=== PATIENT | male | born 1955 | race Caucasian/White ===

== ENCOUNTER 2018-10-05 14:23 | Emergency (ER) | payer OTHER ==
[~2018-10-05] VITALS: Ht 162.6 cm; Wt 70.0 kg
[~2018-10-05 14:23] MED LIST: ACET1TAB40 PO; ASPI-1046 PO; CARV3.12 PO; CEPH-443 PO; ENAL2.5T PO; GLIM1TAB PO; METF100010 PO; SITA25TA3 PO
[2018-10-05 14:25] VITALS: Ht 162.6 cm; Wt 70.0 kg
--- NOTE | 2018-10-05 16:36 | ERD ---
ER Documentation Chief Complaint Chief Complaint mid sternal chest pain with nausea x2days pain 05/05 HPI 63-year-old male with history of diabetes, hypertension, hyperlipidemia, chronic nicotine abuse and coronary artery disease status post PCI with stent placement in 2007 presents the ED complaining of a 2-day history of unprovoked episodes of moderate to severe, midsternal, nonradiating chest pain with nausea but no vomiting, shortness of breath or diaphoresis. These episodes last several minutes and resolve spontaneously but have been increasing in frequency. Currently asymptomatic. Denies abdominal pain or back pain. No leg pain or swelling. Denies orthopnea, PND or exertional dyspnea. No URI symptoms, cough or hemoptysis. No URI symptoms, rhinorrhea or odynophagia. No fevers or chills. ROS All systems reviewed and are negative except as per history of present illness. Medications Home Meds Active Scripts Nitroglycerin* (Nitroglycerin* SL) 0.4 Mg Tab.subl, 0.4 MG SL Q5MIN PRN for CHEST PAIN, #1 BOTTLE Prov:KATHY AIKEN MD 10/05/18 Reported Medications Insulin Glargine,Hum.rec.anlog (Basaglar Kwikpen U-100) 100 Unit/1 Ml Insuln.pen, 20 UNIT SC BID, EA 10/05/18 Losartan Potassium* (Losartan Potassium*) 100 Mg Tablet, 100 MG PO DAILY, TAB 10/05/18 Metoprolol Succinate* (Toprol XL*) 25 Mg Tab.sr.24h, 25 MG PO DAILY, #30 TAB 10/05/18 Atorvastatin* (Atorvastatin*) 80 Mg Tablet, 80 MG PO QHS, #30 TAB 10/05/18 Gemfibrozil* (Gemfibrozil*) 600 Mg Tablet, 600 MG PO BID, TAB 10/05/18 Multivit/Ca Carb/B Cmplx/Fa* (Shania-Faisal*) 1 Tab Tab, 1 TAB PO DAILY, TAB 10/05/18 Clopidogrel Bisulfate* (Clopidogrel Bisulfate*) 75 Mg Tablet, 75 MG PO DAILY, #30 TAB 10/05/18 Sitagliptin Phos-Metformin Hcl (Janumet XR) 100-1,000 Mg Tbmp.24hr, 1 TAB PO WITH DINNER, #30 TAB 7/13/19 Discontinued Reported Medications Enalapril Maleate* (Enalapril Maleate*) 2.5 Mg Tablet, PO DAILY, TAB 05/16/14 Carvedilol* (Coreg*) 3.125 Mg Tablet, PO BID, TAB 05/16/14 Aspirin* (Aspirin* (EC)) 81 Mg Tablet.dr, 81 MG PO DAILY, TAB 05/16/14 Glimepiride* (Amaryl*) 1 Mg Tablet, PO DAILY, TAB 05/16/14 Metformin Hcl* (Metformin Hcl*) 1,000 Mg Tablet, 1000 MG PO DAILY, TAB 05/16/14 Sitagliptin* (Januvia*) 25 Mg Tablet, PO DAILY, TAB 05/16/14 Discontinued Scripts Acetaminophen-Codeine* (Acetaminophen-Cod #3*) 300-30 Mg Tab, 1 TAB PO Q4H PRN for PAIN, #14 TAB Prov:LENNY POWELL PA-C 03/15/15 Cephalexin* (Keflex*) 500 Mg Capsule, 500 MG PO QID for 7 Days, CAP Prov:LENNY POWELL PA-C 03/15/15 Allergies Allergies: Coded Allergies: No Known Allergy (Unverified , 10/05/18) PMhx/Soc Reviewed in chart. As per HPI. History of Surgery: Yes (STENT ) Anesthesia Reaction: No Hx Neurological Disorder: No Hx Respiratory Disorders: No Hx Cardiac Disorders: Yes (AL , HTN , HIGH CHOLESTEROL ) Hx Psychiatric Problems: No Hx Miscellaneous Medical Probl: Yes (DM) Hx Alcohol Use: No Hx Substance Use: No Hx Tobacco Use: Yes Smoking Status: Current every day smoker FmHx No sudden cardiac or cancer Physical Exam Vitals Vital Signs Date Temp Pulse Resp B/P (MAP) Pulse Ox O2 O2 Flow FiO2 Time Delivery Rate 10/05/18 82 16 131/82 98 Room Air 19:21 (98) 10/05/18 Nasal 2 16:00 Cannula 10/05/18 101 18 135/92 96 Room Air 15:52 (106) 10/05/18 98.1 68 18 142/77 97 14:25 (98) Physical Exam Const: Alert, no acute distress. Head: Atraumatic Eyes: Pupils equal reactive light, extraocular movements are intact. Normal Conjunctiva ENT: Normal External Ears, Nose and Mouth. Neck: Full range of motion. No JVD. Resp: Breath sounds are equal and clear to auscultation bilaterally Cardio: Regular rate and rhythm, no murmurs Chest Wall: No tenderness. Abd: Soft, obese, non tender, non distended. No rebound or guarding. No masses or abnormal pulsations. Normal bowel sounds Skin: No petechiae or rashes Back: No midline or flank tenderness Ext: No cyanosis, or edema. No calf swelling or tenderness. Neur: Awake and alert. No facial droop. Cranial nerves II through XII are grossly intact. Motor and sensory equal bilaterally. No focal deficit. Psych: Normal Mood and Affect. Patient does not appear anxious or depressed. Result Diagram: 10/05/18 1553 10/05/18 1553 Results 24 hrs Laboratory Tests Test 10/05/18 15:53 White Blood Count 12.6 10^3/ul Red Blood Count 4.77 10^6/ul Hemoglobin 14.2 g/dl Hematocrit 40.8 % Mean Corpuscular Volume 85.5 fl Mean Corpuscular Hemoglobin 29.8 pg Mean Corpuscular Hemoglobin Concent 34.8 g/dl Red Cell Distribution Width 13.4 % Platelet Count 307 10^3/UL Mean Platelet Volume 10.5 fl Immature Granulocytes % 1.300 % Neutrophils % 53.5 % Lymphocytes % 35.9 % Monocytes % 6.1 % Eosinophils % 2.4 % Basophils % 0.8 % Nucleated Red Blood Cells % 0.0 /100WBC Immature Granulocytes # 0.160 10^3/ul Neutrophils # 6.8 10^3/ul Lymphocytes # 4.5 10^3/ul Monocytes # 0.8 10^3/ul Eosinophils # 0.3 10^3/ul Basophils # 0.1 10^3/ul Nucleated Red Blood Cells # 0.0 10^3/ul Sodium Level 141 mmol/L Potassium Level 4.4 mmol/L Chloride Level 108 mmol/L Carbon Dioxide Level 22 mmol/L Anion Gap 11 Blood Urea Nitrogen 18 mg/dl Creatinine 1.03 mg/dl Est Glomerular Filtrat Rate mL/min > 60 mL/min Glucose Level 205 mg/dl Calcium Level 9.7 mg/dl Troponin I 0.071 ng/ml Current Medications Medications Dose Sig/Deniz Start Time Status Last (Trade) Ordered Route PRN Stop Time Admin Dose Reason Admin Nicotine 1 patch ONCE ONCE 10/05/18 DC (Nicoderm 21 TRANSDERM 18:30 Mg/ 24hr) 10/05/18 18:31 Procedures/MDM DOCUMENTS REVIEWED: ED nurse, other visits. EKG: Time: 14:27. Sinus tachycardia. Ventricular rate 104. Q's and T wave inversions in leads II, III and aVF. T wave inversions in V5 and V6. No acute ST segment elevations. No ectopy. My Interpretation IMAGING: Chest AP portable. Cardiac silhouette is normal. The costophrenic a ngles are clear. No effusions or infiltrates. No abnormalities of the bony thorax. My interpretation. 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 CBC remarkable for mild leukocytosis but no anemia or thrombocytopenia. Chemistry to evaluate for electrolyte abnormalities, hyperglycemia and renal insufficiency is significant for mild hyperglycemia but no acidosis. Troponin is 0.17. EKG is negative for acute ischemic changes or dysrhythmia. Chest x-ray reveals no evidence of congestive heart failure or pneumonia. Patient with new onset episodes of chest pain consistent with acute coronary syndrome and unstable angina. Considered CT pulmonary angiogram but presentation not consistent with pulmonary embolism or aortic dissection. HEART score: 4. Poorly controlled hypertension. Admission recommended but patient is refusing. The patient has made the decision to leave this Emergency Department and any ongoing care against the advice of the emergency physician. The patient has been informed of and verbalized understanding of the inherent risks of this decision, including sudden and permanent disability. The patient explained to me the reason for wanting to sign out against medical advice which was he currently feels fine and cannot stay in the hospital without being able to smoke cigarettes. He has already been given a nicotine patch. The patient has the capacity to make this decision and accepts the responsibility of leaving at this time. The patient and all necessary parties have been advised that the patient may return at any time for further evaluation or treatment. The patient's condition at time of discharge is serious. Smoking Cessation Therapy: Pt. was lectured for greater than 3 minutes on the health risks of continued smoking and the benefits of cessation. Though the patient's latest blood pressure was elevated (>120/80), the patient has a known history of hypertension and urged to pursue adjustment of their medical therapy as soon as possible with his primary care physician. Please refer to the medication reconciliation form for the current list of hypertensive medications. Counseled patient and family regarding diagnostic workup, diagnosis and need for followup. Understands he is welcome and indeed encourage to return to ED if he changes his mind regarding admission, symptoms recur, worsen or any other concer ns. Departure Diagnosis: Primary Impression: Acute coronary syndrome without high troponin Additional Impressions: Chest pain due to CAD Accelerated hypertension Left against medical advice Nicotine addiction Nicotine product type: cigarettes Substance use status: uncomplicated Qualified Codes: F17.210 - Nicotine dependence, cigarettes, uncomplicated Condition: Serious KATHY AIKEN MD Oct 05, 2018 16:36
[2018-10-05] MEDS ORDERED: SITA1TBM7 PO (17:54)
[2018-10-05] MEDS ORDERED: CLOP75TA19 PO (17:55)
[2018-10-05] MEDS ORDERED: NEPH PO (17:55)
[2018-10-05] MEDS ORDERED: GEMF600T8 PO (17:58)
[2018-10-05] MEDS ORDERED: METO-335 PO (17:59)
[2018-10-05] MEDS ORDERED: ATOR-2 PO (17:59)
[2018-10-05] MEDS ORDERED: LOSA100T15 PO (18:00)
[2018-10-05] MEDS ORDERED: INSU100I33 SC (18:01)
[2018-10-05] MEDS ORDERED: NICOTINE (21 MG/24 HR) PATCH TRANSDERM ONE (18:30)
[2018-10-05] MEDS ORDERED: NITR0.4T32 SL (19:18)
[2018-10-05 19:21] VITALS: BP 131/82; PULSE 82; RESP 16
== END 2018-10-05 19:21 | disposition left against medical advice (07) ==
LOC: E/R 14:23
DX: I24.9 Acute ischemic heart disease, unspecified (principal); I10 Essential (primary) hypertension; F17.210 Nicotine dependence, cigarettes, uncomplicated; E11.9 Type 2 diabetes mellitus without complications; Z79.4 Long term (current) use of insulin; Z98.61 Coronary angioplasty status
CPT/HCPCS: 71045; 80048; 84484; 85025; 93005; Z7610